=== PATIENT | male | born 1975 | race Caucasian/White ===

== ENCOUNTER 2019-07-15 08:16 | Emergency (ER) | payer SELFPAY ==
--- NOTE | 2019-07-15 08:36 | NUR ---
PATIENT LEFT WITHOUT BEING SEEN BY DR. Gomez. PT DID NOT WANT TO BE SEEN DUE TO INSURANCE REASONS. NO FURTHER CARE PROVIDED FOR PATIENT.
--- NOTE | 2019-07-15 08:39 | NUR ---
PT LWBS AT THIS TIME. PT NOTIFIED ADMITTING THEY WERE LEAVING.
== END 2019-07-15 08:36 | disposition left against medical advice (07) ==
LOC: MED 08:16
DX: M79.645 Pain in left finger(s) (principal); Z53.21 Procedure and treatment not carried out due to patient leaving prior to being seen by health care provider
CPT/HCPCS: 99283